=== PATIENT | female | born 1950 | race Caucasian/White ===

== ENCOUNTER 2018-09-09 16:19 | Observation (INO) | payer MEDICARE ==
[~2018-09-09] VITALS: Ht 162.6 cm; Wt 75.5 kg
--- NOTE | ~2018-09-09 | MORECARE ---
CASE MANAGEMENT DISCHARGE SUMMARY PATIENT: MAGDI ESTRELLA UNIT: [id number] ADM DATE: 09/09/18 AGE: 68 : 51 SEX: F ROOM/BED: D.2211 AUTHOR: CORINADOC PHYSICIAN: REFERRING PHYSICIAN: ZAINA MENDES MD DATE OF SERVICE: 09/12/18 Discharge Plan Patient Name: MAGDI ESTRELLA Facility: [facility]:[place] : 1950 Planned Disposition: Home Anticipated Discharge Date: Discharge Date: Expected LOS: Initial Reviewer: [email or web address] Initial Review Date: 09/09/2018 Generated: 09/12/18 3:10 pm Comments DCP- Discharge Planning Updated by [id number]: Dina Durán on 09/12/18 1:[address] Patient Name: MAGDI ESTRELLA Admission Status: Urgent Accout number: [id number] Admission Date: 09-09-2018 : 1950 Admission Diagnosis: Attending: ZAINA MENDES Current LOS: 3 Anticipated DC Date: Planned Disposition: Home Primary Insurance: [facility] [employer] SOLUTIONS Discharge Planning Comments: CM MET WITH PATIENT TO ASSESS DISCHARGE PLANNING NEEDS. PATIENT STATED THAT SHE IS INDEPENDENT WITH HER CARE AT HOME. SHE LIVES WITH HER . SHE DENIES ANY DME OR COMMUNITY RESOURCES AT THIS TIME. SHE DOES NOT WANT OR NEED HOME HEALTH. HER DAUGHTER WILL BE THE ONE TO DRIVE HER HOME AT DISCHARGE. HER HOME IS SAFE TO RETURN. CM WILL CONTINUE TO FOLLOW AND ASSIST WITH DC PLANNING NEEDS Recyclable Materials Collector: Dina Durán DCPIA - Discharge Planning Initial Assessment Updated by [id number]: Dina Durán on 09/12/18 2:02 pm * Is the patient Alert and Oriented? Yes * How many steps to enter\exit or inside your home? * PCP CINTHYA * Pharmacy [facility] * Preadmission Environment Home with Family * ADLs Independent * Equipment None * List name and contact numbers for known caregivers / representatives who currently or will assist patient after discharge: EBONY () [phone] * Verbal permission to speak to the caregivers and representatives has been obtained from the patient. N/A * Community resources currently utilized None * Additional services required to return to the preadmission environment? No * Can the patient safely return to the preadmission environment? Yes * Has this patient been hospitalized within the prior 30 days at any hospital? No Coverage Notice Reviewer: [email or web address] Jefry Slater Notice Issued Date-Time: 09/10/2018 10:38 Notice Type: Medicare Outpatient Observation Notice Notice Delivered To: Patient Relationship to Patient: Self Tool Design Checker Name: Delivery Method: HAND - Hand Delivered Betsy Days: Prior Verbal Notification: Recipient Understood Notice: Yes Recipient Signature: Yes Med Rec Note Co-signed by Attending: Coverage Notice Comment: Last DP export: 09/12/18 1:02 Patient Name: MAGDI ESTRELLA Page [id number] at 1410 All edits/amendments must be made on the electronic document DICTATION DATE: 09/12/181408 PINION AND WHEEL TRUER: SALLY 09/12/181408 RPT#: [id number] DC DATE: STATUS: ADM IN [facility] [address] [place] [address] END OF REPORT
--- NOTE | ~2018-09-09 | MORECARE ---
CASE MANAGEMENT DISCHARGE SUMMARY PATIENT: MAGDI ESTRELLA UNIT: [id number] ADM DATE: 09/09/18 AGE: 68 : 51 SEX: F ROOM/BED: D.2211 AUTHOR: CORINADOC PHYSICIAN: REFERRING PHYSICIAN: ZAINA MENDES MD DATE OF SERVICE: 09/14/18 Discharge Plan Patient Name: MAGDI ESTRELLA Facility: [facility]:[place] : 1950 Planned Disposition: Home Anticipated Discharge Date: Discharge Date: 09/12/2018 Expected LOS: Initial Reviewer: [email or web address] Initial Review Date: 09/09/2018 Generated: 09/14/18 10:52 am DCP- Discharge Planning Updated by [email or web address]: Dina Durán on 09/12/18 1:[address] Patient Name: MAGDI ESTRELLA Admission Status: Urgent Accout number: [id number] Admission Date: 09-09-2018 : 1950 Admission Diagnosis: Attending: ZAINA MENDES Current LOS: 3 Anticipated DC Date: Planned Disposition: Home Primary Insurance: [facility] MEDICARE SOLUTIONS Discharge Planning Comments: CM MET WITH PATIENT TO ASSESS DISCHARGE PLANNING NEEDS. PATIENT STATED THAT SHE IS INDEPENDENT WITH HER CARE AT HOME. SHE LIVES WITH HER . SHE DENIES ANY DME OR COMMUNITY RESOURCES AT THIS TIME. SHE DOES NOT WANT OR NEED HOME HEALTH. HER DAUGHTER WILL BE THE ONE TO DRIVE HER HOME AT DISCHARGE. HER HOME IS SAFE TO RETURN. CM WILL CONTINUE TO FOLLOW AND ASSIST WITH DC PLANNING NEEDS Marketing Proposal Specialist: Dina Durán DCPIA - Discharge Planning Initial Assessment Updated by [id number]: Dina Durán on 09/12/18 2:02 pm * Is the patient Alert and Oriented? Yes * How many steps to enter\exit or inside your home? * PCP CINTHYA * Pharmacy [facility] * Preadmission Environment Home with Family * ADLs Independent * Equipment None * List name and contact numbers for known caregivers / representatives who currently or will assist patient after discharge: EBONY () [phone] * Verbal permission to speak to the caregivers and representatives has been obtained from the patient. N/A * Community resources currently utilized None * Additional services required to return to the preadmission environment? No * Can the patient safely return to the preadmission environment? Yes * Has this patient been hospitalized within the prior 30 days at any hospital? No Coverage Notice Reviewer: [id number] Jefry Slater Notice Issued Date-Time: 09/10/2018 10:38 Notice Type: Medicare Outpatient Observation Notice Notice Delivered To: Patient Relationship to Patient: Self Switch Adjuster Name: Delivery Method: HAND - Hand Delivered Betsy Days: Prior Verbal Notification: Recipient Understood Notice: Yes Recipient Signature: Yes Med Rec Note Co-signed by Attending: Coverage Notice Comment: Last DP export: 09/12/18 1:10 Patient Name: MAGDI ESTRELLA Page [id number] at 0952 All edits/amendments must be made on the electronic document DICTATION DATE: 09/14/18950 PIER HAND HELPER: SALLY 09/14/18950 RPT#: [id number] DC DATE:09/12/18 STATUS: DIS IN [facility] [address] [place] [address] END OF REPORT
--- NOTE | ~2018-09-09 | MORECARE ---
CASE MANAGEMENT DISCHARGE SUMMARY PATIENT: MAGDI ESTRELLA UNIT: [id number] ADM DATE: 09/09/18 AGE: 68 : 51 SEX: F ROOM/BED: D.2211 AUTHOR: JUAN JOSÉ ARRIAGA PHYSICIAN: REFERRING PHYSICIAN: ZAINA MENDES MD DATE OF SERVICE: 09/12/18 Discharge Plan Patient Name: MAGDI ESTRELLA [facility] : 1950 Planned Disposition: Home Anticipated Discharge Date: Discharge Date: Expected LOS: Initial Reviewer: [id number] Initial Review Date: 09/09/2018 Generated: 09/12/18 3:02 pm Coverage Notice Reviewer: [email or web address] Jefry Slater Notice Issued Date-Time: 09/10/2018 10:38 Notice Type: Medicare Outpatient Observation Notice Notice Delivered To: Patient Relationship to Patient: Self Mercerizing Range Controller Name: Delivery Method: HAND - Hand Delivered Betsy Days: Prior Verbal Notification: Recipient Understood Notice: Yes Recipient Signature: Yes Med Rec Note Co-signed by Attending: Coverage Notice Comment: Patient Name: MAGDI ESTRELLA Page [phone] at 1402 All edits/amendments must be made on the electronic document DICTATION DATE: 09/12/181401 MONITOR TECH: SALLY 09/12/181401 RPT#: [id number] DC DATE: STATUS: ADM IN [facility] [address] [place] [address] END OF REPORT
[2018-09-09] MEDS ORDERED: PRAVACHOL20 MG PO (17:33)
[2018-09-09] MEDS ORDERED: TOPAMAX50 MG PO (17:35)
[2018-09-09] MEDS ORDERED: OXYBUTYNIN CHLOR5 MG PO (17:36)
[2018-09-09] MEDS ORDERED: EFFEXOR50 MG PO (17:37)
[2018-09-09] MEDS ORDERED: HYDROCHLOROTH12.5 M1 PO (17:38)
[2018-09-09] MEDS ORDERED: NORCO 10-325 TA1 TAB PO (17:40)
[2018-09-09] MEDS ORDERED: K-TAB10 MEQ PO (17:41)
[2018-09-09] MEDS ORDERED: PREMARIN0.3 MG (17:42)
[2018-09-09 17:43] LABS: BASOPHILS 0.2 % (0-2); EOSINOPHILS 0.3 % (0-7); HEMATOCRIT 38.1 % (36.0-48.0); HEMOGLOBIN 13.1 g/dL (12-16); IMMATURE GRANULOCYTES 0.2 % (0-5); LYMPHOCYTES 14.7 % (15-50); MCH 30.9 pg (26.0-34.0); MCHC 34.4 g/dL (31.0-37.0); MCV 89.9 fL (80.0-100.0); MEAN PLATELET VOLUME 9.1 fL (7.4-10.4); MONOCYTES 5.8 % (2-11); NEUTROPHILS 78.8 % (40-80); PLATELET COUNT 272 10x3/uL (130-400); RBC 4.24 10x6/uL (4.00-5.40); RDW 11.6 % (11.5-14.5); WBC 12.8 10x3/uL (4.8-10.8)
[2018-09-09] MEDS ORDERED: BUTALB-APAP-CA1 EACH (17:43)
[2018-09-09 18:06] LABS: ALBUMIN 4.1 g/dL (3.4-5.0); ANION GAP 13.6 mmol/L (8-16); BILIRUBIN - TOTAL 0.43 mg/dL (0.2-1.3); CALCIUM 9.7 mg/dL (8.5-10.1); CARBON DIOXIDE 29.9 mmol/L (21.0-32.0); POTASSIUM - SERUM 3.5 mmol/L (3.5-5.1); PROTEIN - SERUM 7.8 g/dL (6.4-8.2)
[2018-09-09 18:21] VITALS: BP 139/66
[2018-09-09 20:24] VITALS: BP 152/71
[2018-09-09 22:51] LABS: APPEARANCE CLEAR (CLEAR); BILIRUBIN NEGATIVE (NEGATIVE); COLOR YELLOW (YELLOW); GLUCOSE NEGATIVE (NEGATIVE); KETONE NEGATIVE (NEGATIVE); NITRITE NEGATIVE (NEGATIVE); PROTEIN NEGATIVE (NEGATIVE); UROBILINOGEN NORMAL (NORMAL)
[2018-09-10 05:02] VITALS: BP 131/77
[2018-09-10 05:43] LABS: BASOPHILS 0.5 % (0-2); EOSINOPHILS 1.1 % (0-7); HEMATOCRIT 35.3 % (36.0-48.0); HEMOGLOBIN 11.9 g/dL (12-16); IMMATURE GRANULOCYTES 0.1 % (0-5); LYMPHOCYTES 27.1 % (15-50); MCH 30.4 pg (26.0-34.0); MCHC 33.7 g/dL (31.0-37.0); MCV 90.3 fL (80.0-100.0); MEAN PLATELET VOLUME 9.3 fL (7.4-10.4); MONOCYTES 7.8 % (2-11); NEUTROPHILS 63.4 % (40-80); PLATELET COUNT 245 10x3/uL (130-400); RBC 3.91 10x6/uL (4.00-5.40); RDW 11.8 % (11.5-14.5)
[2018-09-10 05:56] LABS: WBC 7.5 10x3/uL (4.8-10.8)
[2018-09-10 06:10] LABS: ALBUMIN 3.3 g/dL (3.4-5.0); ANION GAP 12.2 mmol/L (8-16); BILIRUBIN - TOTAL 0.31 mg/dL (0.2-1.3); CALCIUM 9.2 mg/dL (8.5-10.1); CARBON DIOXIDE 29.2 mmol/L (21.0-32.0); CREATININE - SERUM 0.9 mg/dL (0.6-1.3); POTASSIUM - SERUM 3.4 mmol/L (3.5-5.1); PROTEIN - SERUM 7.2 g/dL (6.4-8.2)
[2018-09-10 08:33] VITALS: BP 126/66
[2018-09-10 09:08] VITALS: Ht 162.6 cm; Wt 75.5 kg
[2018-09-10 12:45] VITALS: BP 102/69
[2018-09-10 17:17] VITALS: BP 101/57
[2018-09-10] MEDS ORDERED: BUTALB-APAP-CA1 EACH PO (20:59)
[2018-09-10 21:08] VITALS: BP 140/72
[2018-09-11 05:16] VITALS: BP 131/79
[2018-09-11 05:54] LABS: BASOPHILS 0.8 % (0-2); EOSINOPHILS 1.9 % (0-7); HEMATOCRIT 34.7 % (36.0-48.0); HEMOGLOBIN 11.7 g/dL (12-16); IMMATURE GRANULOCYTES 0.2 % (0-5); LYMPHOCYTES 30.2 % (15-50); MCH 30.6 pg (26.0-34.0); MCHC 33.7 g/dL (31.0-37.0); MCV 90.8 fL (80.0-100.0); MEAN PLATELET VOLUME 8.9 fL (7.4-10.4); NEUTROPHILS 59.9 % (40-80); PLATELET COUNT 213 10x3/uL (130-400); RBC 3.82 10x6/uL (4.00-5.40); RDW 11.6 % (11.5-14.5)
[2018-09-11 06:04] LABS: WBC 4.7 10x3/uL (4.8-10.8)
[2018-09-11 06:14] LABS: ALBUMIN 3.1 g/dL (3.4-5.0); ALKALINE PHOSPHATASE 79 U/L (46-116); ALT (SGPT) 21 U/L (10-68); BILIRUBIN - TOTAL 0.13 mg/dL (0.2-1.3); CALCIUM 9.4 mg/dL (8.5-10.1); CARBON DIOXIDE 28.7 mmol/L (21.0-32.0); CHLORIDE - SERUM 107 mmol/L (98-107); CREATININE - SERUM 0.8 mg/dL (0.6-1.3); GLUCOSE 110 mg/dL (74-106); SODIUM 143 mmol/L (136-145); eGFR NON AFRICAN AMERICAN 76 mL/min (90-120)
[2018-09-11 06:17] LABS: CALC OSMOLALITY 284 mosm/kg (275-300); UREA NITROGEN 9 mg/dL (7-18)
[2018-09-11 09:38] VITALS: BP 136/72
[2018-09-11 13:20] VITALS: BP 154/74
[2018-09-11 17:39] VITALS: BP 130/67
[2018-09-11 20:00] VITALS: BP 130/71
[2018-09-12] VITALS: BP 123/63
[2018-09-12 04:00] VITALS: BP 146/68
[2018-09-12 04:36] LABS: BASOPHILS 0.6 % (0-2); EOSINOPHILS 2.4 % (0-7); HEMATOCRIT 33.6 % (36.0-48.0); HEMOGLOBIN 11.2 g/dL (12-16); IMMATURE GRANULOCYTES 0.2 % (0-5); LYMPHOCYTES 43.4 % (15-50); MCH 30.3 pg (26.0-34.0); MCHC 33.3 g/dL (31.0-37.0); MCV 90.8 fL (80.0-100.0); MEAN PLATELET VOLUME 9.4 fL (7.4-10.4); MONOCYTES 6.9 % (2-11); NEUTROPHILS 46.5 % (40-80); PLATELET COUNT 247 10x3/uL (130-400); RDW 11.6 % (11.5-14.5); WBC 5.1 10x3/uL (4.8-10.8)
[2018-09-12 04:59] LABS: ALBUMIN 2.9 g/dL (3.4-5.0); ANION GAP 9.4 mmol/L (8-16); BILIRUBIN - TOTAL 0.11 mg/dL (0.2-1.3); CALCIUM 8.7 mg/dL (8.5-10.1); CARBON DIOXIDE 28.1 mmol/L (21.0-32.0); CREATININE - SERUM 0.9 mg/dL (0.6-1.3); POTASSIUM - SERUM 3.5 mmol/L (3.5-5.1); PROTEIN - SERUM 6.5 g/dL (6.4-8.2)
[2018-09-12 07:55] VITALS: BP 143/67
[2018-09-12 12:30] VITALS: BP 142/62
[2018-09-12 15:30] VITALS: BP 148/70
== END 2018-09-12 19:21 | disposition home or self-care (01) ==
LOC: D.SDCHOLD 16:19 → D.MS 16:19 → OBSVTIME 16:22 → D.MS 16:26
PROVIDERS: Family Medicine
DX: K52.9 Noninfective gastroenteritis and colitis, unspecified (principal); I10 Essential (primary) hypertension; E78.5 Hyperlipidemia, unspecified; E87.1 Hypo-osmolality and hyponatremia; E87.6 Hypokalemia; M51.36 Other intervertebral disc degeneration, lumbar region

== ENCOUNTER → 2018-11-16 09:56 | Outpatient (CLI) | payer MEDICARE ==
[~2018-11-16 09:56] MED LIST: BUTALB-APAP-CA1 EACH; BUTALB-APAP-CA1 EACH PO; EFFEXOR50 MG PO; HYDROCHLOROTH12.5 M1 PO; K-TAB10 MEQ PO; NORCO 10-325 TA1 TAB PO; OXYBUTYNIN CHLOR5 MG PO; PRAVACHOL20 MG PO; PREMARIN0.3 MG; TOPAMAX50 MG PO
== END | disposition home or self-care (01) ==
LOC: D.MRI 09:56
DX: S49.92XA Unspecified injury of left shoulder and upper arm, initial encounter (principal); X58.XXXA Exposure to other specified factors, initial encounter

== ENCOUNTER 2019-04-20 07:45 | Day surgery (SDC) | payer OTHER ==
[2019-04-19 14:42] LABS: HEMATOCRIT 39.7 % (36.0-48.0); HEMOGLOBIN 13.8 g/dL (12-16); MCH 31.2 pg (26.0-34.0); MCHC 34.8 g/dL (31.0-37.0); MCV 89.8 fL (80.0-100.0); MEAN PLATELET VOLUME 9.1 fL (7.4-10.4); RBC 4.42 10x6/uL (4.00-5.40); RDW 11.7 % (11.5-14.5)
[~2019-04-20] VITALS: Ht 162.6 cm; Wt 76.2 kg
[2019-04-20] MEDS ORDERED: LOSARTAN/HCT 100-12. (08:48)
[2019-04-20 08:50] VITALS: BP 149/83; Ht 162.6 cm; Wt 76.2 kg
[2019-04-20] MEDS ORDERED: HYDROCODON-ACE1 EA10 PO (12:39)
--- NOTE | 2019-04-20 15:10 | NUR ---
1500 IV REMOVED WITH [facility] INTACT. ALL DISCHARGE INSTRUCTIONS GIVEN. VOICES UNDERSTANDING. DRESSED AT BEDSIDE. TAKEN OUT VIA W/C TO CAR WITH FAMILY. ADVISED TO CALL [facility] BACK IF ANY PROBLEMS.
--- NOTE | 2019-04-27 11:34 | OP ---
PATIENT NAME: MAGDI ESTRELLA MEDICAL RECORD: [id number] :[birth year] LOCATION:[facility] ADMISSION DATE: SURGEON: GETACHEW SMITH MD DATE OF OPERATION: 04/20/2019 PREOPERATIVE DIAGNOSIS: Rotator cuff tear of the left shoulder with impingement syndrome. POSTOPERATIVE DIAGNOSIS: Rotator cuff tear of the left shoulder with impingement syndrome. PROCEDURES: 1. Arthroscopic rotator cuff repair of the left shoulder. 2. Arthroscopic distal clavicle excision done through separate incision -- 1 cm. 3. Arthroscopic subacromial decompression with acromioplasty and bursectomy. SURGEON: Getachew Smith MD ANESTHESIA: General. INTRAOPERATIVE COMPLICATIONS: None. SUMMARY OF PATHOLOGIC FINDINGS: Consistent with the preoperative diagnosis, the patient had full thickness rotator cuff tearing along with excoriation of the coracoacromial ligament with a downward sloping acromion as well as acromioclavicular arthritis. OPERATIVE SUMMARY IN DETAIL: After obtaining the appropriate preoperative orthopedic surgery consent as well as anesthetic consultation, evaluation, and clearance and the appropriate time out, having been done and agreed upon by all, the patient was placed in a right lateral decubitus position. All pressure points were well padded. She was held firmly to the operating table using the vacuum pack suction system. Left upper extremity and shoulder were then prepped and draped in routine sterile fashion. The arm was held in the Arthrex traction boom at 30 degrees of forward flexion, 30 degrees of abduction with 10 pounds of traction laterally. Arthroscopy was established in the glenohumeral joint from the posterior portal. Anterior portal was established in the anterior safe interval. Diagnostic arthroscopy showed full thickness tearing. A transarthroscopic rotator portal was created for debridement of the articular aspect of the rotator cuff fibers that were needed further decortication of the articular side of the supraspinatus tendinous footprint was carried out with the arthroscopic resector. Attention was then turned to subacromial space. While in the subacromial space, Ple[place] tissue ablation system was utilized to denude the undersurface of the acromion of all soft tissue elements. A 5-0 barrel bur was used for acromioplasty at the level of acromioclavicular joint and then the acromioclavicular joint was visualized and then through a separate anterior arthroscopic portal, the distal clavicle was taken down for 1 cm including the hypertrophic bone spurs inferiorly, superiorly. Having completed this, attention was turned to the rotator cuff and rotator cuff was then treated with a single inverted #2 FiberTape which was anchored laterally with a #5 SwiveLock from Arthrex resulted in excellent anatomic roman catholic of the rotator cuff back over the supraspinatus tendinous footprint. Having completed this, arthroscopy portals were closed in routine interrupted fashion using 4-0 Prolene. Sterile dressings were applied. The patient was awakened and taken to the recovery room OPERATIVE REPORT [id number] DELORES,MAGDI GAMBOA in stable condition. All final needle and sponge counts were correct. TRANSINT:[id number] Voice Confirmation ID: [id number] DOCUMENT ID: [id number] SARAH EDWARDS, GETACHEW CASIANO at 1134 CC: [id number] DICTATION DATE: 04/26/19 0952 MANPOWER DEVELOPMENT ADVISOR: 04/26/19 1237 [facility] 04/20/19 [id number] [place] [address]
== END 2019-04-20 15:00 | disposition home or self-care (01) ==
LOC: D.OPS 07:45 → D.PAN 19:15 → D.OPS 19:15
PROVIDERS: Anesthesiology; ATTEND Orthopaedic Surgery
DX: M75.42 Impingement syndrome of left shoulder (principal); M75.122 Complete rotator cuff tear or rupture of left shoulder, not specified as traumatic; Z01.812 Encounter for preprocedural laboratory examination